=== PATIENT | female | born 1940 | race Caucasian/White ===

== ENCOUNTER 2016-11-27 21:25 | Emergency (ER) | payer MEDICARE, BC ==
[~2016-11-27] VITALS: Ht 162.6 cm; Wt 60.8 kg
[~2016-11-27 21:25] MED LIST: AMLO5TAB4 PO; ASPI325T4 PO; ATOR40TA PO; CALC-112 PO; CARV10CP PO; CARV6.2512 PO; DOXY100C2 PO; ITRA100C PO; MULT-717 PO; VALS320T2 PO
[2016-11-27 22:27] LABS: BLOOD UREA NITROGEN 30 mg/dL (7-18)
[2016-11-27 22:33] LABS: IS PT STATUS REG ER OR PRE ER? YES
[2016-11-27 22:51] VITALS: BP 178/67
== END 2016-11-27 23:05 | disposition home or self-care (01) ==
LOC: ED 22:59
DX: I10 Essential (primary) hypertension (principal); E11.9 Type 2 diabetes mellitus without complications; E78.00 Pure hypercholesterolemia, unspecified
CPT/HCPCS: 36415; 80048; 82040; 84484; 85025; 93005; 99285

== ENCOUNTER → 2016-12-09 | Outpatient (CLI) | payer MEDICARE, BC ==
[~2016-12-09] MED LIST changes: +REGADENOSON 0.4 MG/5 ML SYRINGE ONE
== END | disposition home or self-care (01) ==
LOC: CFH 07:15
PROVIDERS: ATTEND Internal Medicine Cardiovascular Disease
DX: I10 Essential (primary) hypertension (principal); R06.02 Shortness of breath
CPT/HCPCS: 78452; 93017; A9502; J2785

== ENCOUNTER → 2016-12-11 | Outpatient (CLI) | payer MEDICARE, BC ==
[~2016-12-11] MED LIST changes: +OMNIPAQUE 350 MG/ML, 100ML BOTTLE ONE; -REGADENOSON 0.4 MG/5 ML SYRINGE ONE
== END | disposition home or self-care (01) ==
LOC: CFH 14:20
PROVIDERS: ATTEND Physician Assistant
DX: I10 Essential (primary) hypertension (principal); R51 Headache
CPT/HCPCS: 70470; Q9967

== ENCOUNTER → 2017-06-08 | Outpatient (CLI) | payer MEDICARE, BC ==
[~2017-06-08] MED LIST changes: +ASPI325T17 PO; -ASPI325T4 PO; -OMNIPAQUE 350 MG/ML, 100ML BOTTLE ONE
== END | disposition home or self-care (01) ==
LOC: CVU 13:25
PROVIDERS: ATTEND Internal Medicine Cardiovascular Disease
DX: I65.23 Occlusion and stenosis of bilateral carotid arteries (principal); I67.9 Cerebrovascular disease, unspecified; I10 Essential (primary) hypertension; E78.5 Hyperlipidemia, unspecified; E11.9 Type 2 diabetes mellitus without complications
CPT/HCPCS: 93880

== ENCOUNTER 2017-11-07 02:05 | Inpatient (IN) | payer MEDICARE, BC ==
[~2017-11-07] VITALS: Ht 162.6 cm; Wt 60.3 kg
[2017-11-07] VITALS (7 sets, daily range): BP systolic 107–182; BP diastolic 51–70
[2017-11-07] MEDS ORDERED: ASPIRIN 81 MG TABLET CHEW PO ONE (03:00)
[2017-11-07 03:09] LABS: BASOPHILS # (AUTO) 0.05 x10^3/uL (0-0.1); BASOPHILS % (AUTO) 1 % (0-1); EOSINOPHILS # (AUTO) 0.15 x10^3/uL (0-0.4); EOSINOPHILS % (AUTO) 3 % (1-7); LYMPHOCYTES # (AUTO) 1.31 x10^3/uL (1-3.4); LYMPHOCYTES % (AUTO) 26 % (22-44); MD NO; MEAN CORPUSCULAR HEMOGLOBIN 32.5 pg (27.0-34.8); MEAN CORPUSCULAR HGB CONC 33.8 g/dL (32.4-35.8); MEAN CORPUSCULAR VOLUME 96.3 fL (80-100); MEAN PLATELET VOLUME 9.1 fL (7.4-10.4); MONOCYTES # (AUTO) 0.43 x10^3/uL (0.2-0.8); MONOCYTES % (AUTO) 8 % (2-9); NEUTROPHILS # (AUTO) 3.21 x10^3/uL (1.8-6.8); NEUTROPHILS % (AUTO) 62 % (42-75); PLATELET COUNT 165 x10^3/uL (130-400); RED BLOOD COUNT 4.26 x10^6/uL (3.82-5.3); RED CELL DISTRIBUTION WIDTH 12.9 % (9.6-15.2)
[2017-11-07 03:15] LABS: ALBUMIN 3.3 g/dL (3.4-5.0); ANION GAP 4 mmol/L (5-15); CALCIUM 9.1 mg/dL (8.5-10.1); CHLORIDE 107 mmol/L (98-107); CREATININE 1.04 mg/dL (0.55-1.02)
[2017-11-07 03:19] LABS: TROPONIN I < 0.015 ng/mL (0.000-0.045)
[2017-11-07] MEDS ORDERED: hydrALAzine 20 MG/ML, 1ML IV ONE (04:30)
[2017-11-07] MEDS ORDERED: CARV25TA12 PO (04:33)
[2017-11-07] MEDS ORDERED: ASPI-496 PO (04:33)
[2017-11-07] MEDS ORDERED: HYDR25TA6 PO (04:33)
[2017-11-07] MEDS ORDERED: hydrALAzine 20 MG/ML, 1ML ONE (04:35)
[2017-11-07] MEDS ORDERED: ONDANSETRON 2MG/ML, 2ML IVPush PRN ×2 (05:00→06:00)
[2017-11-07] MEDS ORDERED: ENALAPRILAT 1.25 MG/ML, 2ML IVPush PRN (06:00)
[2017-11-07] MEDS ORDERED: ACETAMINOPHEN 325 MG TABLET PO PRN (06:00)
[2017-11-07] MEDS ORDERED: ENOXAPARIN 40 MG/0.4 ML SQ SCH (06:00)
[2017-11-07] MEDS ORDERED: insulin pump (06:46)
[2017-11-07] MEDS: CARVEDILOL 25 MG TABLET PO SCH ×2 (08:23→20:03)
[2017-11-07] MEDS: VALSARTAN 160 MG TABLET PO SCH ×2 (08:23→20:03)
[2017-11-07] MEDS: HYDROCHLOROTHIAZIDE 25 MG TABLET PO SCH (08:23)
[2017-11-07] MEDS ORDERED: NITROGLYCERIN 0.4 MG BOTTLE (25 TABS) SL ONE (08:26)
[2017-11-07] MEDS ORDERED: NITROGLYCERIN OINT 2%, 1GM TP ONE (08:58)
[2017-11-07] MEDS ORDERED: MAALOX/HYOSCYAMINE/LIDOCAINE 45 ML BTL PO ONE (09:00)
[2017-11-07] MEDS: ASPIRIN 81 MG TABLET EC PO SCH (09:00)
[2017-11-07] MEDS ORDERED: NITROGLYCERIN OINT 2%, 1GM TP SCH (09:00)
[2017-11-07] MEDS ORDERED: SODIUM CHLORIDE 0.9% 1,000 ML IV ONE (09:04)
[2017-11-07 09:16] LABS: CHOLESTEROL, TOTAL 116 mg/dL (140-239); TRIGLYCERIDES 39 mg/dL (50-200); VLDL CHOLESTEROL 8 mg/dL (0-25)
[2017-11-07 09:19] LABS: CHOL/HDL RATIO 1.5; HDL CHOL % 66 % (28-40); HDL CHOLESTEROL (DIRECT) 76 mg/dL (40-60); LDL CHOLESTEROL,CALCULATED 32 mg/dL (54-169); LDL/HDL RATIO 0.4 (0.5-3.0); TROPONIN I 0.073 ng/mL (0.000-0.045)
[2017-11-07] MEDS ORDERED: FENTANYL PF 100 MCG/2ML ONE (10:00)
[2017-11-07] MEDS ORDERED: MIDAZOLAM 1 MG/ML, 5ML ONE (10:00)
[2017-11-07] MEDS ORDERED: TICAGRELOR 90 MG TABLET ONE (10:01)
[2017-11-07] MEDS ORDERED: VERAPAMIL 2.5 MG/ML, 2ML ONE (10:01)
[2017-11-07] MEDS ORDERED: BIVALIRUDIN 250 MG ONE (10:01)
[2017-11-07] MEDS ORDERED: LIDOCAINE-MPF 2% ,5ML ONE (10:01)
[2017-11-07] MEDS ORDERED: HEPARIN 1,000 UNITS/ML, 10ML ONE (10:01)
[2017-11-07] MEDS ORDERED: SODIUM CHLORIDE 0.9% 1,000 ML IV SCH (11:47)
[2017-11-07] MEDS ORDERED: BIVALIRUDIN 250 MG in DEXTROSE 5% 50 ML IV SCH (11:47)
[2017-11-07] MEDS: TICAGRELOR 90 MG TABLET PO SCH (20:03)
[2017-11-07] MEDS ORDERED: ATORVASTATIN 40 MG TABLET PO SCH ×2 (21:00)
[2017-11-07] MEDS: INSULIN LISPRO 100 UNITS/ML, PEN SQ-INSULIN SCH (21:00)
[2017-11-08 01:36] VITALS: BP 160/71
[2017-11-08] MEDS: ASPIRIN 81 MG TABLET EC PO SCH (05:32)
[2017-11-08 05:33] LABS: ANION GAP 6 mmol/L (5-15); CALCIUM 8.8 mg/dL (8.5-10.1); CHLORIDE 109 mmol/L (98-107); CREATININE 1.03 mg/dL (0.55-1.02)
[2017-11-08 05:42] LABS: TROPONIN I 0.316 ng/mL (0.000-0.045)
[2017-11-08 07:22] VITALS: BP 185/74
[2017-11-08 08:14] LABS: BASOPHILS # (AUTO) 0.03 x10^3/uL (0-0.1); BASOPHILS % (AUTO) 1 % (0-1); EOSINOPHILS # (AUTO) 0.11 x10^3/uL (0-0.4); EOSINOPHILS % (AUTO) 2 % (1-7); LYMPHOCYTES # (AUTO) 0.91 x10^3/uL (1-3.4); LYMPHOCYTES % (AUTO) 14 % (22-44); MD NO; MEAN CORPUSCULAR HGB CONC 33.7 g/dL (32.4-35.8); MEAN CORPUSCULAR VOLUME 95.1 fL (80-100); MEAN PLATELET VOLUME 9.1 fL (7.4-10.4); MONOCYTES # (AUTO) 0.59 x10^3/uL (0.2-0.8); MONOCYTES % (AUTO) 9 % (2-9); NEUTROPHILS # (AUTO) 4.67 x10^3/uL (1.8-6.8); NEUTROPHILS % (AUTO) 74 % (42-75); PLATELET COUNT 164 x10^3/uL (130-400); RED BLOOD COUNT 4.33 x10^6/uL (3.82-5.3); RED CELL DISTRIBUTION WIDTH 13.1 % (9.6-15.2)
[2017-11-08 08:24] LABS: ALANINE AMINOTRANSFERASE 27 U/L (12-78); ALBUMIN 3.1 g/dL (3.4-5.0); ANION GAP 5 mmol/L (5-15); CALCIUM 8.7 mg/dL (8.5-10.1); CHLORIDE 107 mmol/L (98-107); CREATININE 1.02 mg/dL (0.55-1.02)
[2017-11-08 08:26] LABS: ALKALINE PHOSPHATASE 75 U/L (45-117); BILIRUBIN,TOTAL 1.2 mg/dL (0.2-1.0); TOTAL PROTEIN 5.9 g/dL (6.4-8.2)
[2017-11-08] MEDS: INSULIN LISPRO 100 UNITS/ML, PEN SQ-INSULIN SCH ×2 (08:29→11:31)
[2017-11-08] MEDS: TICAGRELOR 90 MG TABLET PO SCH (08:30)
[2017-11-08] MEDS: CARVEDILOL 25 MG TABLET PO SCH (08:31)
[2017-11-08] MEDS: HYDROCHLOROTHIAZIDE 25 MG TABLET PO SCH (08:31)
[2017-11-08] MEDS: VALSARTAN 160 MG TABLET PO SCH (08:31)
[2017-11-08] MEDS ORDERED: TICA90TA PO (09:28)
[2017-11-08] MEDS ORDERED: ASPI-621 PO (09:28)
[2017-11-08] MEDS ORDERED: EZET10TA18 PO (09:28)
[2017-11-08] MEDS ORDERED: NITR0.4T SL (09:28)
[2017-11-08] MEDS ORDERED: POTASSIUM CHLORIDE 20 MEQ TAB.ER.PRT PO ONE (09:30)
[2017-11-08] MEDS ORDERED: EZETIMIBE 10 MG TABLET PO SCH (09:30)
[2017-11-08] MEDS ORDERED: NITROGLYCERIN 0.4 MG BOTTLE (25 TABS) SL PRN (09:30)
[2017-11-08] MEDS ORDERED: SODIUM CHLORIDE 0.9%, 250ML IVBOLUS ONE (10:30)
[2017-11-08] MEDS ORDERED: SODIUM CHLORIDE 0.9% 1,000 ML IV SCH (10:30)
[2017-11-08 11:31] VITALS: BP 150/78
[2017-11-08 13:36] VITALS: BP 148/66
== END 2017-11-08 14:15 | disposition home or self-care (01) | DRG 246 ==
LOC: ED 04:49 → EDIP 05:00 → 5SO 05:40
PROVIDERS: ADMIT Internal Medicine; ATTEND Internal Medicine
PROC: 027035Z Dilation of Coronary Artery, One Artery with Two Drug-eluting Intraluminal Devices, Percutaneous Approach (ICD-10-PCS; principal; 2017-11-07)
PROC: 4A023N7 Measurement of Cardiac Sampling and Pressure, Left Heart, Percutaneous Approach (ICD-10-PCS; 2017-11-07)
PROC: B2111ZZ Fluoroscopy of Multiple Coronary Arteries using Low Osmolar Contrast (ICD-10-PCS; 2017-11-07)
PROC: B2151ZZ Fluoroscopy of Left Heart using Low Osmolar Contrast (ICD-10-PCS; 2017-11-07)
PROC: 4A033BC Measurement of Arterial Pressure, Coronary, Percutaneous Approach (ICD-10-PCS; 2017-11-07)
PROC: B4101ZZ Fluoroscopy of Abdominal Aorta using Low Osmolar Contrast (ICD-10-PCS; 2017-11-07)
PROC: B240ZZ3 Ultrasonography of Single Coronary Artery, Intravascular (ICD-10-PCS; 2017-11-07)
DX: I24.9 Acute ischemic heart disease, unspecified (principal); E43 Unspecified severe protein-calorie malnutrition; I16.1 Hypertensive emergency; N13.30 Unspecified hydronephrosis; E10.51 Type 1 diabetes mellitus with diabetic peripheral angiopathy without gangrene; E78.5 Hyperlipidemia, unspecified; I11.9 Hypertensive heart disease without heart failure; I44.7 Left bundle-branch block, unspecified; Z86.73 Personal history of transient ischemic attack (TIA), and cerebral infarction without residual deficits; Z87.442 Personal history of urinary calculi; Z87.891 Personal history of nicotine dependence
CPT/HCPCS: 36415; 71045; 76770; 80048; 80053; 80061; 82040; 82962; 83036; 83735; 84100; 84484; 85025; 92978; 93005; 93306; 93458; 93571; 96374; 99156; 99157; C1753; C1769; C1894; C9600; J0583; J1644; J1650; J2250; J3010; J3490; C1725; C1874; C1887; J0360; J7030; J7050; Q9967

== ENCOUNTER → 2018-05-13 | Outpatient (CLI) | payer MEDICARE, BC ==
[~2018-05-13] MED LIST changes: +ASPI-496 PO; +ASPI81TA45 PO; +CARV25TA12 PO; +EZET10TA18 PO; +HYDR25TA6 PO; +NITR0.4T SL; +TICA90TA PO; +insulin pump
== END | disposition home or self-care (01) ==
LOC: CFH 10:28
PROVIDERS: ATTEND Internal Medicine
DX: M48.02 Spinal stenosis, cervical region (principal); M50.30 Other cervical disc degeneration, unspecified cervical region
CPT/HCPCS: 72141

== ENCOUNTER → 2018-07-02 | Outpatient (CLI) | payer MEDICARE, BC | END | disposition home or self-care (01) | LOC: CVU 12:20 | PROVIDERS: ATTEND Internal Medicine Cardiovascular Disease | DX: I65.23 Occlusion and stenosis of bilateral carotid arteries (principal); I77.3 Arterial fibromuscular dysplasia; I10 Essential (primary) hypertension; E11.9 Type 2 diabetes mellitus without complications; E78.5 Hyperlipidemia, unspecified; Z95.828 Presence of other vascular implants and grafts | CPT/HCPCS: 93880 ==

== ENCOUNTER 2019-04-18 09:49 | Outpatient (CLI) | payer MEDICARE, BC ==
[~2019-04-18 09:49] MED LIST changes: -EZET10TA18 PO; +EZET10TA70 PO; -NITR0.4T SL; +NITR0.4T41 SL
[2019-04-18] MEDS ORDERED: OMNIPAQUE 350 MG/ML, 100ML BOTTLE ONE (14:17)
== END 2019-04-18 23:59 | disposition home or self-care (01) ==
LOC: CFH 09:49
PROVIDERS: ATTEND Internal Medicine
DX: I65.22 Occlusion and stenosis of left carotid artery (principal); E11.9 Type 2 diabetes mellitus without complications; I10 Essential (primary) hypertension; E78.5 Hyperlipidemia, unspecified; M47.812 Spondylosis without myelopathy or radiculopathy, cervical region; Z87.891 Personal history of nicotine dependence; Z82.49 Family history of ischemic heart disease and other diseases of the circulatory system; Z88.0 Allergy status to penicillin; Z88.2 Allergy status to sulfonamides; Z91.040 Latex allergy status
CPT/HCPCS: 70498; Q9967

== ENCOUNTER 2020-05-04 14:29 | Outpatient (CLI) | payer MEDICARE, BC | END 2020-05-04 23:59 | disposition home or self-care (01) | LOC: CFH 14:29 | PROVIDERS: ATTEND Internal Medicine | DX: Z12.31 Encounter for screening mammogram for malignant neoplasm of breast (principal); Z12.39 Encounter for other screening for malignant neoplasm of breast | CPT/HCPCS: 76641; 77063; 77067 ==

== ENCOUNTER → 2020-05-09 | Outpatient (CLI) | payer MEDICARE, BC | END | disposition home or self-care (01) | LOC: CFH 13:19 | PROVIDERS: ATTEND Internal Medicine | DX: N60.01 Solitary cyst of right breast (principal) | CPT/HCPCS: 76642 ==

== ENCOUNTER → 2020-10-17 | Outpatient (CLI) | payer MEDICARE, BC | END | disposition home or self-care (01) | LOC: CFH 12:30 | PROVIDERS: ATTEND Internal Medicine Cardiovascular Disease | DX: I08.8 Other rheumatic multiple valve diseases (principal); I11.9 Hypertensive heart disease without heart failure; I25.10 Atherosclerotic heart disease of native coronary artery without angina pectoris | CPT/HCPCS: 93306 ==

== ENCOUNTER 2020-11-04 17:33 | Observation (INO) | payer MEDICARE, BC ==
[~2020-11-04] VITALS: Ht 162.6 cm; Wt 61.5 kg
--- NOTE | 2020-11-04 17:45 | NUR ---
PROVIDER AT BEDSIDE TO DO EVALUATION
--- NOTE | 2020-11-04 17:50 | NUR ---
BIB [facility] STATES PT WAS IN THE MALL WHILE WALKING AND STARTED TO FEEL SWEATY AND FATIGUE SHE WENT HOME AND HAD HER BP CHECKED AND WAS 239/73 PT DOES HAVE A HX OF HTN AND HAS SEVERAL EPISODES LIKE THIS. EMS STATES TAKES CLONOPINE FOR HTN LIKE THIS BUT FOR WHAT EVER REASON SHE DIDN'T THIS TIME. EMS WAS GIVEN INSTRUCTION TO GIVE MOTOPOROL 5. EMS STATES THE MOST RECENT BP WAS 212/71 PRIOR TO ARRIVAL.
[2020-11-04] MEDS ORDERED: hydrALAzine 20 MG/ML, 1ML IV ONE ×2 (18:00→19:00)
--- NOTE | 2020-11-04 18:06 | NUR ---
PT PUT ON MONITOR DEFICE INCLUDING HEART, O2, AND BP. RAIL UP X2 BED IN LOWEST POSITION CALL REMOTE WITHIN REACH.
[2020-11-04] MEDS ORDERED: hydrALAzine 20 MG/ML, 1ML ONE ×2 (18:14→19:11)
[2020-11-04 18:19] LABS: BASOPHILS % (AUTO) 1 % (0-1); EOSINOPHILS % (AUTO) 1 % (1-7); LYMPHOCYTES % (AUTO) 12 % (22-44); MEAN CORPUSCULAR HEMOGLOBIN 32.5 pg (27.0-34.8); MEAN CORPUSCULAR HGB CONC 33.8 g/dL (32.4-35.8); MEAN PLATELET VOLUME 9.4 fL (7.4-10.4); MONOCYTES % (AUTO) 6 % (2-9); NEUTROPHILS % (AUTO) 80 % (42-75); PLATELET COUNT 180 x10^3/uL (130-400); RED BLOOD COUNT 4.89 x10^6/uL (3.82-5.3); RED CELL DISTRIBUTION WIDTH 13.1 % (9.6-15.2)
[2020-11-04 18:30] LABS: ALANINE AMINOTRANSFERASE 28 U/L (12-78); ALBUMIN 3.7 g/dL (3.4-5.0); ANION GAP 12 mmol/L (5-15); CALCIUM 9.2 mg/dL (8.5-10.1); CHLORIDE 106 mmol/L (98-107); CREATININE 0.85 mg/dL (0.55-1.02)
[2020-11-04 18:34] LABS: ALKALINE PHOSPHATASE 107 U/L (45-117); BILIRUBIN,TOTAL 0.6 mg/dL (0.2-1.0); TOTAL PROTEIN 7.3 g/dL (6.4-8.2); TROPONIN I < 0.015 ng/mL (0.000-0.045)
--- NOTE | 2020-11-04 18:55 | NUR ---
PT RESPOND WELL TO BP MEDICATION.
--- NOTE | 2020-11-04 19:00 | NUR ---
RECEIVED REPORT FROM LILY VELEZ
--- NOTE | 2020-11-04 19:13 | NUR ---
REPORT GIVEN TO PANCHO BAUTISTA TO ASSUME CARE.
--- NOTE | 2020-11-04 19:20 | NUR ---
GAVE PT 5 MG HYDROLOZINE PER ERP, HELPED PT ON BEDPAN. PT RESTING COMFORTABLY ON GURNEY, DENIES NEEDS AT THIS TIME.
[2020-11-04] MEDS ORDERED: TELM40TA PO (19:40)
[2020-11-04] MEDS ORDERED: AMLO2.5T5 PO (19:40)
[2020-11-04] MEDS ORDERED: CARV12.52 PO (19:40)
--- NOTE | 2020-11-04 20:04 | NUR ---
Pt to be admitted to NEURO TELE, room 408. Report called to LILY SILVA.
[2020-11-04] MEDS ORDERED: ONDANSETRON 2MG/ML, 2ML ONE (20:12)
[2020-11-04 20:30] VITALS: BP 165/68
[2020-11-04] MEDS ORDERED: BISACODYL 10 MG SUPP PR PRN (20:30)
[2020-11-04] MEDS ORDERED: ACETAMINOPHEN 325 MG TABLET PO PRN (20:30)
[2020-11-04] MEDS ORDERED: POLYETHYLENE GLYCOL 17 GM PACKET PO PRN (20:30)
[2020-11-04] MEDS ORDERED: hydrALAzine 20 MG/ML, 1ML IV PRN (20:30)
[2020-11-04] MEDS ORDERED: NITROGLYCERIN SINGLE TAB 0.4 MG SL SCH (20:30)
[2020-11-04] MEDS ORDERED: ONDANSETRON 2MG/ML, 2ML IVPush PRN (20:30)
[2020-11-04] MEDS ORDERED: ATORVASTATIN 40 MG TABLET PO SCH (21:00)
[2020-11-04 21:30] LABS: MICROSCOPIC AUTO
[2020-11-04 21:45] VITALS: BP 173/74
[2020-11-04] MEDS: CARVEDILOL 12.5 MG TABLET PO SCH (21:46)
[2020-11-04] MEDS: SODIUM CHLORIDE FLUSH 10ML SYR IVF SCH (21:46)
[2020-11-04] MEDS: LOSARTAN 50MG TABLET PO SCH (21:46)
[2020-11-04 22:40] VITALS: BP 145/79
[2020-11-05 00:34] LABS: TROPONIN I 0.059 ng/mL (0.000-0.045)
[2020-11-05 01:37] VITALS: BP 155/94
[2020-11-05] MEDS ORDERED: DIPHENHYDRAMINE 25 MG CAPSULE PO PRN (02:00)
[2020-11-05] MEDS ORDERED: ASPIRIN 81 MG TABLET EC PO SCH (06:00)
[2020-11-05 06:25] LABS: TROPONIN I 0.047 ng/mL (0.000-0.045)
[2020-11-05 07:32] VITALS: BP 173/68
[2020-11-05 08:37] VITALS: BP 135/68
[2020-11-05] MEDS ORDERED: CALCIUM/VITAMIN D3 250-125 TABLET PO SCH (09:00)
[2020-11-05] MEDS ORDERED: SENNA/DOCUSATE TABLET PO SCH (09:00)
[2020-11-05] MEDS ORDERED: EZETIMIBE 10 MG TABLET PO SCH (09:00)
[2020-11-05] MEDS ORDERED: MULTIVITAMIN 1 TABLET PO SCH (09:00)
[2020-11-05] MEDS ORDERED: AMLODIPINE 2.5 MG TABLET PO SCH (09:00)
[2020-11-05] MEDS: LOSARTAN 50MG TABLET PO SCH (09:02)
[2020-11-05] MEDS: CARVEDILOL 12.5 MG TABLET PO SCH (09:02)
[2020-11-05] MEDS: SODIUM CHLORIDE FLUSH 10ML SYR IVF SCH (09:03)
[2020-11-05] MEDS ORDERED: CLIN300C3 PO (12:20)
== END 2020-11-05 12:45 | disposition home or self-care (01) ==
LOC: ED 18:00 → EDIP 20:08 → INTOOBSV 20:08 → 4WST 20:14
PROVIDERS: ADMIT Family Medicine; ATTEND Family Medicine
DX: I16.0 Hypertensive urgency (principal); E10.9 Type 1 diabetes mellitus without complications; E78.5 Hyperlipidemia, unspecified; I25.10 Atherosclerotic heart disease of native coronary artery without angina pectoris; I11.0 Hypertensive heart disease with heart failure; I50.32 Chronic diastolic (congestive) heart failure; I38 Endocarditis, valve unspecified; R42 Dizziness and giddiness; Z88.0 Allergy status to penicillin; Z91.040 Latex allergy status; Z79.82 Long term (current) use of aspirin; Z79.899 Other long term (current) drug therapy; Z79.4 Long term (current) use of insulin; Z66 Do not resuscitate; Z87.891 Personal history of nicotine dependence; Z86.73 Personal history of transient ischemic attack (TIA), and cerebral infarction without residual deficits; Z96.41 Presence of insulin pump (external) (internal); Z95.5 Presence of coronary angioplasty implant and graft
CPT/HCPCS: 36415; 70450; 71045; 80053; 81001; 83036; 84484; 85025; 93005; 96374; 96375; 96376; 99285; G0378; J0360; J2405; Q0163

== ENCOUNTER → 2020-12-07 | Outpatient (CLI) | payer MEDICARE, BC ==
[~2020-12-07] MED LIST changes: +AMLO2.5T5 PO; +CARV12.52 PO; +CLIN300C3 PO; +REGADENOSON 0.4 MG/5 ML SYRINGE ONE; +TELM40TA PO
== END | disposition home or self-care (01) ==
LOC: CFH 07:27
PROVIDERS: ATTEND Physician Assistant Medical
DX: I10 Essential (primary) hypertension (principal); I25.10 Atherosclerotic heart disease of native coronary artery without angina pectoris
CPT/HCPCS: 78452; 93017; A9502; J2785